=== PATIENT | female | born 1965 | race Caucasian/White ===

== ENCOUNTER 2018-08-16 17:02 | Inpatient (IN) | payer MEDICAID, OTHER ==
[~2018-08-16] VITALS: Ht 177.8 cm; Wt 72.1 kg
[2018-08-16] MEDS ORDERED: SODIUM CHLORIDE 0.9% 1,000 ML IV ONE (20:30)
[2018-08-16 20:52] LABS: BASOPHILS % 1.1 % (0.0-2.0); EOSINOPHILS % 2.4 % (0.0-5.0); HEMATOCRIT. 29.7 % (36.0-48.0); HEMOGLOBIN. 9.3 g/dL (12.0-16.0); LYMPHOCYTES % 38.9 % (20.0-50.0); MEAN CORPUSCULAR HEMOGLOBIN 20.4 pg (28.0-32.0); MEAN CORPUSCULAR VOLUME 64.9 fL (81.0-99.0); MEAN PLATELET VOLUME 6.7 fl (7.4-10.4); MONOCYTES % 7.2 % (2.0-8.0); NEUTROPHILS % 50.4 % (40.0-76.0); PLATELET 238 x1000/uL (130-400); RED BLOOD CELL COUNT 4.58 mill/uL (4.2-5.4); RED CELL DISTRIBUTION WIDTH 19.9 % (11.6-14.6)
[2018-08-16 20:55] LABS: CHLORIDE 104 mEq/L (98-107)
[2018-08-16 20:57] LABS: PROTHROMBIN TIME 10.4 sec (9.6-11.0)
[2018-08-16 21:04] LABS: PLATELET ESTIMATE NORMAL
[2018-08-17 04:00] VITALS: BP 117/72
[2018-08-17 06:00] VITALS: BP 117/72
[2018-08-17] MEDS ORDERED: LEVO100T PO ×2 (06:52→07:21)
[2018-08-17 08:00] VITALS: BP 115/75
[2018-08-17] MEDS ORDERED: ONDANSETRON HCL 4MG/2ML INJ IV PRN (08:45)
[2018-08-17] MEDS ORDERED: MORPHINE SULFATE 4 MG/ML CPJ (NOT FOR IM USE) IV PRN (08:45)
[2018-08-17] MEDS ORDERED: PANTOPRAZOLE SODIUM 40 MG/VIAL IV SCH (09:00)
[2018-08-17] MEDS: DEXT 5%/0.45% NACL 1000ML 1,000 ML IV SCH ×2 (09:35→18:30)
[2018-08-17 09:58] LABS: BASOPHILS % 1.2 % (0.0-2.0); EOSINOPHILS % 3.1 % (0.0-5.0); HEMATOCRIT. 30.9 % (36.0-48.0); HEMOGLOBIN. 9.4 g/dL (12.0-16.0); LYMPHOCYTES % 37.6 % (20.0-50.0); MEAN CORPUSCULAR HEMOGLOBIN 19.7 pg (28.0-32.0); MEAN CORPUSCULAR VOLUME 65.3 fL (81.0-99.0); MEAN PLATELET VOLUME 8.3 fl (7.4-10.4); MONOCYTES % 8.8 % (2.0-8.0); NEUTROPHILS % 49.3 % (40.0-76.0); PLATELET 217 x1000/uL (130-400); RED BLOOD CELL COUNT 4.74 mill/uL (4.2-5.4); RED CELL DISTRIBUTION WIDTH 20.2 % (11.6-14.6)
[2018-08-17 12:00] VITALS: BP 126/73
[2018-08-17] MEDS ORDERED: LORAZEPAM 2MG/ML CPJ IV PRN (14:45)
[2018-08-17 16:00] VITALS: BP 137/77
[2018-08-17] MEDS ORDERED: POTASSIUM CHLORIDE 20MEQ TABLET SR PO NR (16:00)
[2018-08-17] MEDS ORDERED: HYDRALAZINE 20MG/ML VIAL IV PRN (16:00)
[2018-08-17] MEDS ORDERED: DOCUSATE SODIUM 100MG CAPSULE PO PRN (16:00)
[2018-08-17 16:39] LABS: CLARITY URINE CLEAR (CLEAR); COLOR URINE YELLOW (YELLOW); KETONES URINE NEGATIVE (NEGATIVE); LEUKOCYTE ESTERASE URINE TRACE (NEGATIVE); NITRITE URINE NEGATIVE (NEGATIVE); OCCULT BLOOD URINE NEGATIVE (NEGATIVE); PH URINE 6.5 (4.5-8.0); PROTEIN URINE NEGATIVE (NEGATIVE); SPECIFIC GRAVITY URINE 1.005 (1.005-1.030); UROBILINOGEN URINE 0.2 E.U./dL (0.2-1.0)
[2018-08-17 16:48] LABS: *AMPHETAMINES SCREEN URINE PRESUMTIVE POSITIVE (NEGATIVE)
[2018-08-17 16:49] LABS: *BARBITURATES SCREEN URINE NEGATIVE (NEGATIVE); *BENZODIAZEPINES SCREEN URINE NEGATIVE (NEGATIVE); *COCAINE SCREEN URINE NEGATIVE (NEGATIVE)
[2018-08-17 16:50] LABS: CANNABINOID URINE SCREEN NEGATIVE (NEGATIVE); METHADONE URINE SCREEN NEGATIVE (NEGATIVE); OPIATES URINE SCREEN NEGATIVE (NEGATIVE); PHENCYCLIDINE URINE SCREEN NEGATIVE (NEGATIVE)
[2018-08-17 16:53] LABS: TOTAL IRON BINDING CAPACITY 413 ug/dL (250-450)
[2018-08-17 16:55] LABS: HEMATOCRIT 29.2 % (36.0-48.0); HEMOGLOBIN 8.8 g/dL (12.0-16.0)
[2018-08-17] MEDS ORDERED: SORBITOL 70% SOLN 30ML PO NR ×2 (17:00→21:00)
[2018-08-17] MEDS: PANTOPRAZOLE SODIUM 40 MG/VIAL IV SCH (18:30)
[2018-08-17] MEDS: NICOTINE 21MG PATCH TD SCH (18:31)
[2018-08-17 20:00] VITALS: BP 125/76
[2018-08-17] MEDS: LORAZEPAM 2MG/ML CPJ IV PRN (20:20)
[2018-08-18] VITALS: BP 124/78
[2018-08-18 00:58] LABS: HEMATOCRIT 29.2 % (36.0-48.0); HEMOGLOBIN 8.9 g/dL (12.0-16.0)
[2018-08-18 04:00] VITALS: BP 124/78
[2018-08-18] MEDS: LORAZEPAM 2MG/ML CPJ IV PRN (05:13)
[2018-08-18 06:26] LABS: HEMATOCRIT 32.3 % (36.0-48.0); HEMOGLOBIN 9.7 g/dL (12.0-16.0); MEAN CORPUSCULAR HEMOGLOBIN 19.9 pg (28.0-32.0); MEAN CORPUSCULAR VOLUME 66.4 fL (81.0-99.0); PLATELET 232 x1000/uL (130-400); RED BLOOD CELL COUNT 4.86 mill/uL (4.2-5.4); RED CELL DISTRIBUTION WIDTH 20.2 % (11.6-14.6)
[2018-08-18 06:28] LABS: CHLORIDE 112 mEq/L (98-107)
[2018-08-18 06:42] LABS: HDL CHOLESTEROL 81 mg/dL (40-59); LDL CHOLESTEROL 161 mg/dL (5-100)
[2018-08-18 06:43] LABS: T4 FREE 0.42 ng/dL (0.76-1.46)
[2018-08-18 08:00] VITALS: BP 148/89
[2018-08-18] MEDS ORDERED: PROPOFOL 200MG/20ML VIAL IV ONE ×2 (09:16→12:56)
[2018-08-18] MEDS ORDERED: LIDOCAINE HCL/PF 1% 10 MG/ML 5ML VIAL ONE (09:17)
[2018-08-18] MEDS: DEXT 5%/0.45% NACL 1000ML 1,000 ML IV SCH (09:50)
[2018-08-18] MEDS: PANTOPRAZOLE SODIUM 40 MG/VIAL IV SCH ×2 (09:50→17:22)
[2018-08-18] MEDS: NICOTINE 21MG PATCH TD SCH (09:50)
[2018-08-18] MEDS ORDERED: ONDANSETRON HCL 4MG/2ML INJ IV PRN (10:00)
[2018-08-18 12:00] VITALS: BP 141/87
[2018-08-18] MEDS ORDERED: PNEUMOCOCCAL 23-VAL P-SAC VAC 0.5 ML IM ONE (12:00)
[2018-08-18 16:00] VITALS: BP 144/89
[2018-08-18] MEDS ORDERED: HYDROCODONE/ACETAMINOPHEN 5/325MG TABLET PO PRN (17:00)
[2018-08-18] MEDS: FERROUS SULFATE 325MG TABLET PO SCH (17:22)
[2018-08-18 20:00] VITALS: BP 150/86
[2018-08-18] MEDS: ATORVASTATIN CALCIUM 20MG TABLET PO SCH (21:50)
[2018-08-18] MEDS: LEVOTHYROXINE SODIUM 200MCG TABLET PO SCH (21:50)
[2018-08-19] VITALS: BP 127/79
[2018-08-19] MEDS: LORAZEPAM 2MG/ML CPJ IV PRN ×2 (01:04→10:43)
[2018-08-19] MEDS: DEXT 5%/0.45% NACL 1000ML 1,000 ML IV SCH ×2 (01:04→16:15)
[2018-08-19 04:00] VITALS: BP 121/67
[2018-08-19] MEDS: LEVOTHYROXINE SODIUM 200MCG TABLET PO SCH (06:55)
[2018-08-19 07:21] LABS: HEMOGLOBIN 8.4 g/dL (12.0-16.0); MEAN CORPUSCULAR VOLUME 66.7 fL (81.0-99.0); PLATELET 196 x1000/uL (130-400); RED BLOOD CELL COUNT 4.19 mill/uL (4.2-5.4); RED CELL DISTRIBUTION WIDTH 20.5 % (11.6-14.6)
[2018-08-19 07:36] LABS: CHLORIDE 109 mEq/L (98-107)
[2018-08-19 08:00] VITALS: BP 155/77
[2018-08-19] MEDS: PANTOPRAZOLE SODIUM 40 MG/VIAL IV SCH ×2 (10:29→16:17)
[2018-08-19] MEDS: FERROUS SULFATE 325MG TABLET PO SCH ×2 (10:29→16:17)
[2018-08-19] MEDS: NICOTINE 21MG PATCH TD SCH (10:29)
[2018-08-19 12:00] VITALS: BP 151/98
[2018-08-19 16:00] VITALS: BP 136/83
[2018-08-19] MEDS: LACTULOSE 20G/30ML UDC PO SCH ×2 (16:14→19:15)
[2018-08-19] MEDS: PHENYLEPHRINE/SHK LV/MO/PET,WH RECTAL OINT 28GM PR SCH ×2 (16:15→18:00)
[2018-08-19] MEDS ORDERED: ACETAMINOPHEN 650MG SUPP PR PRN (18:00)
[2018-08-19] MEDS ORDERED: ACETAMINOPHEN 325MG TABLET PO PRN (18:00)
[2018-08-19 20:00] VITALS: BP 153/85
[2018-08-19] MEDS: ATORVASTATIN CALCIUM 20MG TABLET PO SCH (21:07)
[2018-08-20] VITALS: BP 148/89
[2018-08-20] MEDS: PHENYLEPHRINE/SHK LV/MO/PET,WH RECTAL OINT 28GM PR SCH ×3 (00:38→12:00)
[2018-08-20] MEDS: LACTULOSE 20G/30ML UDC PO SCH ×3 (00:38→12:12)
[2018-08-20 04:00] VITALS: BP 152/90
[2018-08-20] MEDS: DEXT 5%/0.45% NACL 1000ML 1,000 ML IV SCH (06:03)
[2018-08-20] MEDS: LEVOTHYROXINE SODIUM 200MCG TABLET PO SCH (06:06)
[2018-08-20 06:30] LABS: HEMATOCRIT 27.6 % (36.0-48.0); HEMOGLOBIN 8.4 g/dL (12.0-16.0); MEAN CORPUSCULAR VOLUME 65.8 fL (81.0-99.0); PLATELET 208 x1000/uL (130-400); RED CELL DISTRIBUTION WIDTH 20.5 % (11.6-14.6)
[2018-08-20 07:20] LABS: CHLORIDE 109 mEq/L (98-107)
[2018-08-20 08:00] VITALS: BP 109/70
[2018-08-20 08:59] LABS: *AMPHETAMINES SCREEN URINE PRESUMTIVE POSITIVE (NEGATIVE); *BARBITURATES SCREEN URINE NEGATIVE (NEGATIVE); *COCAINE SCREEN URINE NEGATIVE (NEGATIVE); OPIATES URINE SCREEN PRESUMTIVE POSITIVE (NEGATIVE)
[2018-08-20 09:00] LABS: *BENZODIAZEPINES SCREEN URINE NEGATIVE (NEGATIVE); CANNABINOID URINE SCREEN NEGATIVE (NEGATIVE); METHADONE URINE SCREEN NEGATIVE (NEGATIVE); PHENCYCLIDINE URINE SCREEN NEGATIVE (NEGATIVE)
[2018-08-20] MEDS: NICOTINE 21MG PATCH TD SCH (09:33)
[2018-08-20] MEDS: PANTOPRAZOLE SODIUM 40 MG/VIAL IV SCH (09:34)
[2018-08-20] MEDS: FERROUS SULFATE 325MG TABLET PO SCH (09:34)
[2018-08-20 12:00] VITALS: BP 155/96
[2018-08-20 16:00] VITALS: BP 132/80
[2018-08-20 16:07] VITALS: BP 132/80
== END 2018-08-20 16:45 | disposition home or self-care (01) | DRG 254 ==
LOC: ER 17:02 → EDBD 23:44 → 5WST 23:44 → EDBEDREQTM 23:47 → EDBEDREQ 23:47 → ENRESERV 08-17 02:30
PROVIDERS: ADMIT Internal Medicine; ATTEND Internal Medicine
PROC: 0DJD8ZZ Inspection of Lower Intestinal Tract, Via Natural or Artificial Opening Endoscopic (ICD-10-PCS; principal; 2018-08-18)
DX: K64.8 Other hemorrhoids (principal); T18.4XXA Foreign body in colon, initial encounter; I11.9 Hypertensive heart disease without heart failure; E78.5 Hyperlipidemia, unspecified; F15.90 Other stimulant use, unspecified, uncomplicated; D50.0 Iron deficiency anemia secondary to blood loss (chronic); E87.6 Hypokalemia; E89.0 Postprocedural hypothyroidism; F17.210 Nicotine dependence, cigarettes, uncomplicated; N83.209 Unspecified ovarian cyst, unspecified side; Z85.3 Personal history of malignant neoplasm of breast; X58.XXXA Exposure to other specified factors, initial encounter; Y93.89 Activity, other specified; Y92.89 Other specified places as the place of occurrence of the external cause; Y99.8 Other external cause status
CPT/HCPCS: 36415; 71045; 74018; 74176; 80048; 80061; 80305; 82270; 83540; 83550; 84439; 84443; 84481; 85014; 85018; 85027; 99285; A6261; C9113; J0360; J2060; J2270; J2704; J3490

== ENCOUNTER 2018-09-03 19:29 | Emergency (ER) | payer MEDICAID ==
[~2018-09-03] VITALS: Ht 177.8 cm; Wt 76.0 kg
[~2018-09-03 19:29] MED LIST: LEVO100T PO
[2018-09-03] MEDS ORDERED: SODIUM CHLORIDE 0.9% 1,000 ML IV ONE ×2 (19:51→22:45)
[2018-09-03] MEDS ORDERED: MORPHINE SULFATE 4 MG/ML CPJ (NOT FOR IM USE) IV STA (19:51)
[2018-09-03] MEDS ORDERED: ONDANSETRON HCL 4MG/2ML INJ IV ONE ×2 (20:45→21:30)
[2018-09-03 21:17] LABS: HEMATOCRIT. 29.1 % (36.0-48.0); MEAN CORPUSCULAR HEMOGLOBIN 21.3 pg (28.0-32.0); MEAN CORPUSCULAR VOLUME 68.6 fL (81.0-99.0); MEAN PLATELET VOLUME 6.8 fl (7.4-10.4); PLATELET 301 x1000/uL (130-400); RED BLOOD CELL COUNT 4.24 mill/uL (4.2-5.4); RED CELL DISTRIBUTION WIDTH 22.8 % (11.6-14.6)
[2018-09-03 21:24] LABS: PROTHROMBIN TIME 10.3 sec (9.6-11.0)
[2018-09-03 21:25] LABS: CHLORIDE 107 mEq/L (98-107)
[2018-09-03 21:57] LABS: PLATELET ESTIMATE NORMAL
[2018-09-04 00:08] VITALS: BP 109/68
[2018-09-05] MEDS ORDERED: AMLO5TAB88 PO (03:55)
[2018-09-05] MEDS ORDERED: PANT40TA4 PO (03:56)
== END 2018-09-04 00:19 | disposition home or self-care (01) ==
LOC: ER 19:29
DX: K64.4 Residual hemorrhoidal skin tags (principal); I10 Essential (primary) hypertension; Z98.890 Other specified postprocedural states; Z88.0 Allergy status to penicillin; F17.210 Nicotine dependence, cigarettes, uncomplicated
CPT/HCPCS: 36415; 80053; 85025; 85610; 96374; 96375; 96376; 99283; J2270; J2405; J7030; Z7610